=== PATIENT | male | born 1995 | race Caucasian/White ===

== ENCOUNTER 2022-04-07 06:01 | Emergency (ER) | payer SELFPAY ==
[~2022-04-07] VITALS: Ht 177.8 cm; Wt 75.3 kg
--- NOTE | 2022-04-07 06:15 | NUR ---
BIBMIKY/[id number] FROM HOME FOR S/I NOTED TO ROOMATES [employer] PLACING ON 5150 HOLD. PT IS A/O X4, RR EVEN AND UNLABORED NO SOB NOTED. VSS. WILL CONTINUE TO MONITOR.
[2022-04-07 06:50] LABS: BASOPHILS % (AUTO) 0.3 % (0.0-2.0); EOSINOPHILS % (AUTO) 0.2 % (0.0-6.0); HEMATOCRIT 51 % (39-51); HEMOGLOBIN 16.8 g/dL (13.5-17.5); LYMPHOCYTES % (AUTO) 12.2 % (20.0-44.0); MEAN CORPUSCULAR HGB CONC 33 g/dl (31.0-36.0); MEAN CORPUSCULAR VOLUME 90 fL (80-96); MONOCYTES # (AUTO) 1.3 K/uL (0.1-1.30); MONOCYTES % (AUTO) 8.2 % (2.0-12.0); NEUTROPHILS # (AUTO) 12.7 K/uL (1.8-8.9); NEUTROPHILS % (AUTO) 79.1 % (43.0-81.0); PLATELET COUNT (AUTO) 359 K/uL (150-450); RED BLOOD CELL COUNT(AUTO) 5.61 MIL/uL (4.5-6.0); WHITE BLOOD COUNT (AUTO) 16.1 K/uL (4.3-11.0)
--- NOTE | 2022-04-07 07:01 | NUR ---
COVID SWAB COLLECTED
--- NOTE | 2022-04-07 07:11 | NUR ---
[employer] 8506 EFFECTIVE 0600
[2022-04-07 07:14] LABS: ALANINE AMINOTRANSFERASE 30 U/L (12-78); ALBUMIN 4.7 g/dL (3.4-5.0); ALCOHOL, BLOOD 225 mg/dL (0-0); ALKALINE PHOSPHATASE 93 U/L (46-116); ASPARTATE AMINOTRANSFERASE 45 U/L (15-37); BILIRUBIN,DIRECT 0.2 mg/dL (0.0-0.2); BILIRUBIN,TOTAL 0.7 mg/dL (0.2-1.0); CALCIUM, SERUM 9.1 mg/dL (8.5-10.1); CARBON DIOXIDE 24 mmol/L (21-32); CHLORIDE 102 mmol/L (98-107); CREATININE 1.1 mg/dL (0.6-1.3); GLUCOSE 104 mg/dL (74-106); POTASSIUM 3.1 mmol/L (3.5-5.1); SODIUM SERUM 141 mmol/L (136-145); TOTAL PROTEIN, SERUM 8.8 g/dL (6.4-8.2); UREA NITROGEN, BLOOD 12 mg/dL (7-18)
[2022-04-07 07:36] LABS: ACETAMINOPHEN < 10 ug/ml (10-30)
[2022-04-07 08:13] LABS: BILIRUBIN,URINE NEGATIVE (NEGATIVE); COLOR,URINE YELLOW (YELLOW); LEUKOCYTE ESTERASE ,URINE NEGATIVE (NEGATIVE); NITRITE, URINE NEGATIVE (NEGATIVE); PH,URINE 5.5 (5.0-8.0); PROTEIN,URINE 2+ mg/dl (NEGATIVE); UGLUCOSE NEGATIVE (NEGATIVE); UROBILINOGEN,URINE 0.2 EU/dL (0.2)
[2022-04-07 08:30] LABS: FINE GRANULAR CASTS,URINE Few /LPF (None Seen); RBC,URINE 0-2 /HPF (0-2); SQUAMOUS EPITHELIAL CELL,UR Few /HPF (None Seen); WBC,URINE 0-2 /HPF (0-3)
[2022-04-07 08:31] LABS: BACTERIA,URINE Moderate /HPF (None Seen)
[2022-04-07] MEDS ORDERED: LORAZEPAM 1 MG TABLET ONE (10:26)
--- NOTE | 2022-04-07 10:27 | NUR ---
ATIVAN GIVEN PO AT THIS TIME
[2022-04-07] MEDS ORDERED: LORAZEPAM 1 MG TABLET PO ONE (10:30)
--- NOTE | 2022-04-07 10:49 | NUR ---
CALLED [employer] INSTRUCTOR (ART) FOR EVALUATION. NO ETA GIVEN, BUT ART SAID HE WILL COME.
[2022-04-07] MEDS ORDERED: NICOTINE PATCH (7MG) 7 MG PATCH.TD24 TD SCH (11:30)
--- NOTE | 2022-04-07 11:32 | NUR ---
NICOTINE PATCH GIVEN AT THIS TIME RIGHT DELTOID
[2022-04-07 14:08] VITALS: BP 132/76
--- NOTE | 2022-04-07 14:09 | NUR ---
PT WASA SEEN BY ART TRANSMISSION WORKER. CLEARED. DISCHARGED IN STABLE CONDITION.
== END 2022-04-07 14:09 | disposition home or self-care (01) ==
LOC: ER 06:03
DX: F10.129 Alcohol abuse with intoxication, unspecified (principal); R45.851 Suicidal ideations; Z20.822 Contact with and (suspected) exposure to COVID-19
CPT/HCPCS: 99285; 85025; 80048; 87086; 80076; 81001; 36415; 87426; 80143; 80320; 80307; C9803; G0480